=== PATIENT | female | born 1980 | race Caucasian/White ===

== ENCOUNTER 2024-12-17 13:39 | Outpatient (CLI) | payer OTHER, SELFPAY | END 2024-12-17 13:40 | disposition home or self-care (01) | PROVIDERS: PCP Physician Assistant Medical; Visit Provider Physician Assistant Medical | DX: E66.01 Morbid (severe) obesity due to excess calories (principal); E78.5 Hyperlipidemia, unspecified; Z13.29 Encounter for screening for other suspected endocrine disorder; Z13.1 Encounter for screening for diabetes mellitus; Z13.9 Encounter for screening, unspecified | CPT/HCPCS: 80053; 80061; 82306; 82670; 83498; 83525; 84146; 84270; 84402; 84403; 84443 ==